=== PATIENT | male | born 1965 | race Asian ===

== ENCOUNTER 2017-02-06 08:29 | Day surgery (SDC) | payer OTHER ==
[2017-02-06] MEDS ORDERED: LACTATED RINGERS 1,000 ML IV ONE (08:38)
[2017-02-06] MEDS ORDERED: fentaNYL 100 MCG/2 ML VIAL IVP ONE (10:05)
[2017-02-06] MEDS ORDERED: MIDAZOLAM 2 MG/2 ML VIAL IVP ONE (10:05)
[2017-02-06 11:02] VITALS: BP 123/68
== END 2017-02-06 08:30 | disposition home or self-care (01) ==
LOC: SDS 08:29
PROVIDERS: ATTEND Surgery
PROC: 0DBN8ZX Excision of Sigmoid Colon, Via Natural or Artificial Opening Endoscopic, Diagnostic (ICD-10-PCS; principal; 2017-02-06 09:45)
DX: Z12.11 Encounter for screening for malignant neoplasm of colon (principal); K64.8 Other hemorrhoids; K63.5 Polyp of colon; E78.5 Hyperlipidemia, unspecified; K21.9 Gastro-esophageal reflux disease without esophagitis; Z87.891 Personal history of nicotine dependence; Z79.82 Long term (current) use of aspirin
CPT/HCPCS: 45380; J7120; 88305

== ENCOUNTER 2019-10-22 18:42 | Emergency (ER) | payer OTHER ==
[2019-10-22 18:53] VITALS: BP 147/88
[2019-10-22] MEDS ORDERED: LIDOCAINE 1% 2 ML VIAL SUBQ STA (19:02)
--- NOTE | 2019-10-22 19:06 | ED Physician Documentation ---
PD HPI SKIN - Stated complaint Stated Complaint: RT THUMB LAC - Chief complaint Chief Complaint: Laceration - History obtained from History obtained from: Patient (Pt is a [employer] [place] He was training at the [employer]. He was transfering pistol from the left hand to the right and during that process lacerated the dorsum of his thumb. Reports normal sensation, rom of thumb. Last td a year ago per pt report.) Review of Systems Constitutional: reports: Reviewed and negative Cardiac: reports: Reviewed and negative Respiratory: reports: Reviewed and negative GI: reports: Reviewed and negative Skin: reports: Laceration (s) PD PAST MEDICAL HISTORY - Past Medical History Past Medical History: Yes Cardiovascular: High cholesterol Respiratory: Shortness of breath Endocrine/Autoimmune: None GI: GERD : None HEENT: None Psych: None Musculoskeletal: None Derm: None - Past Surgical History Past Surgical History: No - Present Medications Home Medications: Ambulatory Orders Medication Instructions Recorded Confirmed Albuterol Sulf [Ventolin Hfa 1 - 2 puffs INH Q4HR PRN 02/06/17 02/06/17 Inhaler] Aspirin [Adult Low Dose Aspirin EC] 81 mg PO ONCE 02/06/17 02/06/17 Fluticasone 44 Mcg [Flovent] 120 puffs INH ONCE 02/06/17 02/06/17 Rosuvastatin Calcium [Crestor] 10 mg PO DAILY 02/06/17 02/06/17 raNITIdine HCL [Ranitidine HCl] 150 mg PO BID 02/06/17 02/06/17 - Allergies Allergies/Adverse Reactions: Allergies Allergy/AdvReac Type Severity Reaction Status Date / Time No Known Drug Allergies Allergy Verified 10/22/19 18:47 - Social History Does the pt smoke?: No Smoking Status: Current some day smoker Does the pt drink ETOH?: No Does the pt have substance abuse?: No - Immunizations Immunizations are current?: Yes - POLST Patient has POLST: No PD ED PE NORMAL - Vitals Vital signs reviewed: Yes - General General: Alert and oriented X 3, No acute distress, Well developed/nourished - HEENT HEENT: Atraumatic - Cardiac Cardiac: RRR, No murmur, No gallop, No rub, Strong equal pulses - Respiratory Respiratory: No respiratory distress, Clear bilaterally - Derm Derm: Normal color, Warm and dry, No rash, Other (3cm lac dorsum of right thumb. no tendon involvement. ) - Extremities Extremities: Other (flex/ext right thumb w/o difficulty. ) Results - Vitals Vitals: Vital Signs - 24 hr 10/22/19 18:47 Temperature 36.4 C L Heart Rate 95 Respiratory 18 Rate Blood Pressure 147/88 H O2 Saturation 96 Oxygen O2 Source Room air Procedures - Laceration (location) right thumb Length in cm: 3 Wound type: Linear Neurovascular status: Sensory intact, Motor intact, Vascular intact Tendon involvement: Tendon intact Anesthesia: Lidocaine 1% Skin layer closure: Nylon, Interrupted, Size #-0 - enter number (4), Sutures - enter # (5) Other: Patient tolerated well, No complications, Neurovascular intact, Dressing applied, Tetanus UTD Complexity: Simple PD MEDICAL DECISION MAKING - ED course Complexity details: d/w patient ED course: Pt presented with a right thumb lac w/o tendon involvement. The wound was cleaned and closed with sutures. Pt to fup in 7 days for suture removal. Return precautions d/w pt. Departure - Departure Disposition: 01 Home, Self Care Clinical Impression: Laceration Condition: Good Instructions: ED Laceration Repair Infec, ED Laceration Hand Comments: Follow up in 7 days for suture removal. Keep wound clean and dry, okay to wash hands but do not soak wound in water. Return if you have redness, swelling, or purulent drainage.
== END 2019-10-22 19:35 | disposition home or self-care (01) ==
LOC: ED 18:42
DX: S61.011A Laceration without foreign body of right thumb without damage to nail, initial encounter (principal); W26.8XXA Contact with other sharp object(s), not elsewhere classified, initial encounter; Y93.89 Activity, other specified; Y92.89 Other specified places as the place of occurrence of the external cause; Y99.0 Civilian activity done for income or pay; F17.200 Nicotine dependence, unspecified, uncomplicated
CPT/HCPCS: 12002; 99281; 99282

== ENCOUNTER 2019-10-23 09:24 | Emergency (ER) | payer OTHER ==
[2019-10-23 09:33] VITALS: BP 140/94
--- NOTE | 2019-10-23 09:41 | ED Physician Documentation ---
PD HPI UPPER EXT INJURY - Stated complaint Stated Complaint: R HAND LAC - Chief complaint Chief Complaint: Laceration - History obtained from History obtained from: Patient - History of Present Illness Location: Right, Finger (thumb.) Type of injury: Laceration Recently seen: Emergency Dept (yesterday - had the laceration sutured and needs work note today due to difficulty with ROM of the thumb. 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.) Review of Systems Neurologic: denies: Focal weakness, Numbness PD PAST MEDICAL HISTORY - Past Medical History Cardiovascular: High cholesterol Respiratory: Shortness of breath Endocrine/Autoimmune: None GI: GERD : None HEENT: None Psych: None Musculoskeletal: None Derm: None - Past Surgical History Past Surgical History: No - Present Medications Home Medications: Ambulatory Orders Medication Instructions Recorded Confirmed Albuterol Sulf [Ventolin Hfa 1 - 2 puffs INH Q4HR PRN 02/06/17 02/06/17 Inhaler] Aspirin [Adult Low Dose Aspirin EC] 81 mg PO ONCE 02/06/17 02/06/17 Fluticasone 44 Mcg [Flovent] 120 puffs INH ONCE 02/06/17 02/06/17 Rosuvastatin Calcium [Crestor] 10 mg PO DAILY 02/06/17 02/06/17 raNITIdine HCL [Ranitidine HCl] 150 mg PO BID 02/06/17 02/06/17 - Allergies Allergies/Adverse Reactions: Allergies Allergy/AdvReac Type Severity Reaction Status Date / Time No Known Drug Allergies Allergy Verified 10/23/19 09:27 - Social History Does the pt smoke?: No Smoking Status: Never smoker Does the pt drink ETOH?: No Does the pt have substance abuse?: No - Immunizations Immunizations are current?: Yes - POLST Patient has POLST: No PD ED PE NORMAL - Vitals Vital signs reviewed: Yes - General General: Alert and oriented X 3, No acute distress, Well developed/nourished - Derm Derm: Normal color, Warm and dry - Extremities Extremities: Other (sutured laceration right thumb without signs of infection. ) Results - Vitals Vitals: Vital Signs - 24 hr 10/23/19 09:27 Temperature 36.3 C L Heart Rate 67 Respiratory 16 Rate Blood Pressure 140/94 H O2 Saturation 98 Oxygen O2 Source Room air PD MEDICAL DECISION MAKING - ED course Complexity details: considered differential, d/w patient Departure - Departure Disposition: 01 Home, Self Care Clinical Impression: Encounter for re-check of laceration wound Condition: Stable Record reviewed to determine appropriate education?: Yes Instructions: ED Laceration Hand Follow-Up: Jozef Owen MD [Primary Care Provider] - Comments: Continue the instructions from yesterday for wound care. Gentle range of motion and use of the thumb only for the next week until the sutures are removed. I would suggest attempting increased range of motion while its healing though so it is not stiff at the time of the stitches coming out. Forms: Activity restrictions Discharge Date/Time: 10/23/19 10:25
== END 2019-10-23 10:25 | disposition home or self-care (01) ==
LOC: ED 09:24
DX: S61.011D Laceration without foreign body of right thumb without damage to nail, subsequent encounter (principal)
CPT/HCPCS: 1040M; 99282